=== PATIENT | male | born 1985 | race Caucasian/White ===

== ENCOUNTER 2024-02-14 11:50 | Emergency (ER) | payer OTHER ==
[2024-02-14 12:02] VITALS: BP 138/72; PULSE 73; RESP 20; TEMP 97.6; BMI 23.0
== END 2024-02-14 15:24 | disposition home or self-care (01) ==
LOC: JERFT 11:50
DX: S93.401A Sprain of unspecified ligament of right ankle, initial encounter (principal); S09.90XA Unspecified injury of head, initial encounter; X50.1XXA Overexertion from prolonged static or awkward postures, initial encounter
CPT/HCPCS: 73130-TC-RT-FY; 73610-TC-RT-FY; 73630-TC-RT-FY; 99284-25